=== PATIENT | female | born 1940 | race African-American/Black ===

== ENCOUNTER 2017-11-20 08:34 | Emergency (ER) | payer OTHER ==
[~2017-11-20] VITALS: Ht 162.6 cm; Wt 69.0 kg
[2017-11-20] MEDS ORDERED: METF500T4 PO (08:41)
[2017-11-20] MEDS ORDERED: HYDR-4133 PO (08:41)
[2017-11-20] MEDS ORDERED: AMLO2.5T45 PO (08:41)
[2017-11-20] MEDS ORDERED: GLIP5TAB12 PO (08:41)
[2017-11-20 10:04] LABS: BASOPHILS % 0.5 % (0.0-2.0); EOSINOPHILS % 0.7 % (0.0-5.0); HEMATOCRIT. 35.1 % (36.0-48.0); HEMOGLOBIN. 11.3 g/dL (12.0-16.0); LYMPHOCYTES % 11.8 % (20.0-50.0); MEAN CORPUSCULAR HEMOGLOBIN 27.8 pg (28.0-32.0); MEAN CORPUSCULAR VOLUME 86.2 fL (81.0-99.0); MEAN PLATELET VOLUME 9.3 fl (7.4-10.4); MONOCYTES % 7.2 % (2.0-8.0); NEUTROPHILS % 79.8 % (40.0-76.0); PLATELET 542 x1000/uL (130-400); RED BLOOD CELL COUNT 4.07 mill/uL (4.2-5.4); RED CELL DISTRIBUTION WIDTH 19.2 % (11.6-14.6)
[2017-11-20 10:11] LABS: CHLORIDE 103 mEq/L (98-107)
[2017-11-20 16:07] VITALS: BP 178/63
== END 2017-11-20 16:24 | disposition home or self-care (01) ==
LOC: ER 08:50
DX: K12.1 Other forms of stomatitis (principal); E11.649 Type 2 diabetes mellitus with hypoglycemia without coma; I10 Essential (primary) hypertension; R60.9 Edema, unspecified; Z88.8 Allergy status to other drugs, medicaments and biological substances
CPT/HCPCS: 36415; 80048; 80076; 82962; 83880; 85025; 93971; 99285

== ENCOUNTER 2018-03-22 02:41 | Emergency (ER) | payer OTHER ==
[~2018-03-22] VITALS: Ht 172.7 cm; Wt 100.0 kg
[~2018-03-22 02:41] MED LIST: AMLO2.5T45 PO; GLIP5TAB12 PO; HYDR-4133 PO; METF500T6 PO
[2018-03-22] MEDS ORDERED: SODIUM CHLORIDE 0.9% 1,000 ML IV ONE (03:00)
[2018-03-22 03:31] LABS: BASOPHILS % 0.9 % (0.0-2.0); EOSINOPHILS % 2.7 % (0.0-5.0); HEMATOCRIT. 37.1 % (36.0-48.0); HEMOGLOBIN. 12.4 g/dL (12.0-16.0); LYMPHOCYTES % 15.7 % (20.0-50.0); MEAN CORPUSCULAR HEMOGLOBIN 27.2 pg (28.0-32.0); MEAN CORPUSCULAR VOLUME 81.4 fL (81.0-99.0); MEAN PLATELET VOLUME 8.8 fl (7.4-10.4); MONOCYTES % 4.5 % (2.0-8.0); NEUTROPHILS % 76.2 % (40.0-76.0); PLATELET 420 x1000/uL (130-400); RED BLOOD CELL COUNT 4.55 mill/uL (4.2-5.4); RED CELL DISTRIBUTION WIDTH 16.7 % (11.6-14.6)
[2018-03-22 03:33] LABS: CHLORIDE 104 mEq/L (98-107)
[2018-03-22 03:36] LABS: INR 1.2; PARTIAL THROMBOPLASTIN TIME 42.9 sec (23.4-31.0); PROTHROMBIN TIME 12.9 sec (9.4-11.6)
[2018-03-22] MEDS ORDERED: FUROSEMIDE 40MG/4ML VIAL IV STA (03:41)
[2018-03-22] MEDS ORDERED: ASPIRIN 81MG TABLET PO STA (03:41)
[2018-03-22] MEDS ORDERED: NITROGLYCERIN OINT 1GM/INCH UDPKT TD STA (03:41)
[2018-03-22 03:44] LABS: CREATINE KINASE MB FRACTION 1.3 ng/mL (0.5-3.6)
[2018-03-22 04:31] LABS: CLARITY URINE CLEAR (CLEAR); COLOR URINE YELLOW (YELLOW); KETONES URINE NEGATIVE (NEGATIVE); LEUKOCYTE ESTERASE URINE NEGATIVE (NEGATIVE); NITRITE URINE NEGATIVE (NEGATIVE); OCCULT BLOOD URINE NEGATIVE (NEGATIVE); PROTEIN URINE 2+ (NEGATIVE); SPECIFIC GRAVITY URINE 1.012 (1.005-1.030); UROBILINOGEN URINE 0.2 E.U./dL (0.2-1.0)
[2018-03-22] MEDS ORDERED: DEXTROSE 50% WATER 50ML SYRINGE IV ONE (05:15)
[2018-03-22 06:45] VITALS: BP 147/73
== END 2018-03-22 07:25 | disposition short-term general hospital (02) ==
LOC: ER 02:41
DX: E11.649 Type 2 diabetes mellitus with hypoglycemia without coma (principal); I11.0 Hypertensive heart disease with heart failure; I50.9 Heart failure, unspecified; R94.31 Abnormal electrocardiogram [ECG] [EKG]; Z95.0 Presence of cardiac pacemaker; Z79.4 Long term (current) use of insulin; Z88.0 Allergy status to penicillin; Z88.8 Allergy status to other drugs, medicaments and biological substances; Z79.899 Other long term (current) drug therapy
CPT/HCPCS: 36415; 71045; 80053; 81003; 82553; 82962; 83880; 84484; 85025; 85610; 85730; 93005; 96361; 96374; 96375; 99285; J1940; J7030; Z7610